=== PATIENT | male | born 1990 | race Caucasian/White ===

== ENCOUNTER 2018-12-07 17:24 | Emergency (ER) | payer OTHER ==
[~2018-12-07] VITALS: Ht 177.8 cm; Wt 81.7 kg
[2018-12-07 19:12] VITALS: BP 122/78
== END 2018-12-07 19:13 | disposition home or self-care (01) ==
LOC: ER 17:24
DX: S81.811A Laceration without foreign body, right lower leg, initial encounter (principal); Z90.89 Acquired absence of other organs; W22.8XXA Striking against or struck by other objects, initial encounter; Y93.89 Activity, other specified; Y92.89 Other specified places as the place of occurrence of the external cause; Y99.8 Other external cause status